=== PATIENT | male | born 1985 | race Caucasian/White ===

== ENCOUNTER 2023-04-14 06:52 | Emergency (ER) | payer BC, OTHER ==
[2023-04-14 07:07] VITALS: BMI 31.1
[2023-04-14] MEDS ORDERED: AMOX TR/POT CLAV 875MG/125MG TABLETS (FP) PO ONE (07:56)
[2023-04-14] MEDS ORDERED: DEXAMETHASONE SOD PHOSPHATE 10 MG/1 ML VIAL IM ONE (07:56)
[2023-04-14] MEDS ORDERED: ACETAMINOPHEN 500 MG TABLET (FP) PO ONE (07:56)
[2023-04-14] MEDS ORDERED: ACETAMINOPHEN 500 MG TABLET (FP) ONE (08:11)
[2023-04-14] MEDS ORDERED: AMOX TR/POT CLAV 875MG/125MG TABLETS (FP) ONE (08:11)
[2023-04-14] MEDS ORDERED: DEXAMETHASONE SOD PHOSPHATE 10 MG/1 ML VIAL ONE (08:11)
[2023-04-14 09:05] VITALS: BP 107/62; PULSE 103; RESP 18; TEMP 99.4
== END 2023-04-14 09:10 | disposition home or self-care (01) ==
LOC: JERFT 06:52 → JER 06:52 → JERFT 09:10
PROC: 3E023GC Introduction of Other Therapeutic Substance into Muscle, Percutaneous Approach (ICD-10-PCS; principal; 2023-04-14)
DX: J02.0 Streptococcal pharyngitis (principal); R50.9 Fever, unspecified; M79.10 Myalgia, unspecified site; R51.9 Headache, unspecified; R07.0 Pain in throat; L04.0 Acute lymphadenitis of face, head and neck; J03.90 Acute tonsillitis, unspecified; Z20.822 Contact with and (suspected) exposure to COVID-19
CPT/HCPCS: 0241U-QW; 87651; 99284-25; J1100

== ENCOUNTER 2023-10-05 23:43 | Emergency (ER) | payer BC, OTHER ==
[2023-10-05 23:46] VITALS: BP 136/80; PULSE 115; RESP 18; TEMP 100.5; BMI 30.4
[2023-10-06] MEDS ORDERED: IBUPROFEN 400 MG TABLET (FP) PO ONE (00:08)
[2023-10-06] MEDS ORDERED: AMOXICILLIN 250 MG CAPSULE ONE (00:08)
[2023-10-06] MEDS: IBUPROFEN 400 MG TABLET (FP) PO ONE (00:13)
[2023-10-06] MEDS: AMOXICILLIN 500 MG CAPSULE (FP) PO ONE (00:13)
== END 2023-10-06 00:13 | disposition home or self-care (01) ==
LOC: JER 23:43
DX: J02.0 Streptococcal pharyngitis (principal); R51.9 Headache, unspecified; R50.9 Fever, unspecified; R52 Pain, unspecified
CPT/HCPCS: 99283-25